=== PATIENT | male | born 1955 | race Caucasian/White ===

== ENCOUNTER 2021-06-25 09:47 | Emergency (ER) | payer BC, MEDICARE ==
[2021-06-25] MEDS ORDERED: Ketorolac 60 MG/2 ML SDV IM ONE (10:55)
[2021-06-25] MEDS ORDERED: Acetaminophen 500 MG Tab PO ONE (10:55)
--- NOTE | 2021-06-25 12:29 | EDM.PDOC ---
ED HPI GENERAL MEDICAL PROBLEM - General Chief Complaint: General Stated Complaint: SOB BROKEN RIBS Time Seen by Provider: 06/25/21 10:06 Source of Information: Reports: Patient History Limitations: Reports: No Limitations - History of Present Illness INITIAL COMMENTS - FREE TEXT/NARRATIVE: HISTORY AND PHYSICAL: History of present illness: Patient is a 65-year-old male who presents emergency room today with concern of left-sided rib injury that occurred 3 days ago. Patient states 3 days ago he was on a stepstool and states that he was 1 or 2 rungs up in the garden. Patient states that the stepstool was not properly positioned and fell out from underneath him and states that he fell off to his left side and hit his left side ribs on a large rock that was in the garden. Patient states that he did not hit his head or lose consciousness. Patient states that since then, he has had worsening left-sided rib pain and states that he is having difficulties laying down. Patient states his pain is much improved if he stands but states whenever he goes to sit or lay down, he is had an increase in pain. Patient denies any other associated symptoms. Patient denies fever, chills, chest pain, shortness of breath, or cough. Denies headache, neck stiff ness, change in vision, syncope, or near syncope. Denies nausea, vomiting, abdominal pain, diarrhea, constipation, or dysuria. Has not noted any blood in urine or stool. Patient has been eating and drinking appropriately. Review of systems: As per history of present illness and below otherwise all systems reviewed and negative. Past medical history: As per history of present illness and as reviewed below otherwise noncontributory. Surgical history: As per history of present illness and as reviewed below otherwise noncontributory. Social history: See social history for further information Family history: As per history of present illness and as reviewed below otherwise noncontributory. Physical exam: General: Patient is alert, oriented, and in no acute distress. Patient sitting comfortably on exam table. Vitals stable and reviewed by me. HEENT: Atraumatic, normocephalic, pupils equal and reactive bilaterally, negative for conjunctival pallor or scleral icterus, mucous membranes moist, TMs normal bilaterally, throat clear, neck supple, nontender, trachea midline. No drooling or trismus noted. No meningeal signs. No hot potato voice noted. Lungs: Pain to palpation of the posterior left-sided ribs #8 through 10 without crepitus. Otherwise, clear to auscultation, breath sounds equal bilaterally, c hest nontender. Heart: S1S2, regular rate and rhythm without overt murmur Abdomen: Soft, nondistended, nontender. Negative for masses or hepatosplenomegaly. Negative for costovertebral tenderness. Pelvis: Stable nontender. Genitourinary: Deferred. Rectal: Deferred. Skin: Intact, warm, dry. No lesions or rashes noted. Extremities: Atraumatic, negative for cords or calf pain. Neurovascular unremarkable. Neuro: Awake, alert, oriented. Cranial nerves II through XII unremarkable. Cerebellum unremarkable. Motor and sensory unremarkable throughout. Exam nonfocal. Notes: Signs and symptoms that were prompt return to the ED thoroughly discussed with patient. Discussed importance for follow-up with a primary care provider. Voices understanding and is agreeable to plan of care. Denies any further q uestions or concerns at this time. Diagnostics: Chest CT w/o cont Therapeutics: Toradol, Tylenol, Incentive spirometry Prescription: Tramadol Impression: Rib injury Plan: 1. Use the incentive spirometer 3 times a day for the next 5 days as discussed. Take medication as prescribed. Caution when taking tramadol as this does cause drowsiness and sedation. Do not take this medication operate any heavy equipment or machinery. Caution when taking this medication outside of the home. 2. You can alternate ibuprofen and Tylenol as directed for pain and discomfort. 3. Follow-up with a primary care provider as discussed. Return to the emergency room as needed and as discussed. Definitive disposition and diagnosis as appropriate pending reevaluation and review of above. Left Back Pain Score (Numeric/FACES): 4 - Related Data Allergies Allergy/AdvReac Type Severity Reaction Status Date / Time No Known Allergies Allergy Verified 06/25/21 10:22 Home Meds: Home Meds traMADol [Ultram] 50 mg PO Q6H PRN #15 tab 06/25/21 [Rx] Past Medical History - Past Health History Medical/Surgical History: Denies Medical/Surgical History Cardiovascular History: Reports: Hypertension Social & Family History - Tobacco Use Tobacco Use Status *Q: Never Tobacco User - Recreational Drug Use Recreational Drug Use: No ED ROS GENERAL - Review of Systems Review Of Systems: Comprehensive ROS is negative, except as noted in HPI. ED EXAM, GENERAL - Physical Exam Exam: See Below (see dictation) Course - Vital Signs Last Recorded V/S: Last Vital Signs Temp 98.2 F 06/25/21 14:30 Pulse 88 06/25/21 14:30 Resp 18 06/25/21 14:30 BP 148/72 H 06/25/21 14:30 Pulse Ox 98 06/25/21 14:30 - Orders/Labs/Meds Orders: Active Orders 24 hr Category Date Time Status DME for Discharge [COMM] Stat Oth 06/25/21 14:12 Ordered Meds: Medications Discontinued Medications Generic Name Dose Route Start Last Admin Trade Name Freq PRN Reason Stop Dose Admin Acetaminophen 1,000 mg 06/25/21 10:55 06/25/21 11:16 Acetaminophen 500 Mg Tab PO 06/25/21 10:56 1,000 mg ONETIME ONE Administration Ketorolac Tromethamine 60 mg 06/25/21 10:55 06/25/21 11:17 Ketorolac 60 Mg/2 Ml Sdv IM 06/25/21 10:56 60 mg ONETIME ONE Administration Departure - Departure Time of Disposition: 14:12 Disposition: Home, Self-Care 01 Clinical Impression: Rib injury - Discharge Information Prescriptions: traMADol [Ultram] 50 mg PO Q6H PRN #15 tab PRN Reason: Pain (Severe 7-10) Instructions: Blunt Chest Trauma Referrals: Venancio Ivy MD [Primary Care Provider] - Forms: ED Department Discharge Additional Instructions: The following information is given to patients seen in the emergency department who are being discharged to home. This information is to outline your options for follow-up care. We provide all patients seen in our emergency department with a follow-up referral. The need for follow-up, as well as the timing and circumstances, are variable depending upon the specifics of your emergency department visit. If you don't have a primary care physician on staff, we will provide you with a referral. We always advise you to contact your personal physician following an emergency department visit to inform them of the circumstance of the visit and for follow-up with them and/or the need for any referrals to a consulting specialist. The emergency department will also refer you to a specialist when appropriate. This referral assures that you have the opportunity for follow-up care with a specialist. All of these measure are taken in an effort to provide you with optimal care, which includes your follow-up. Under all circumstances we always encourage you to contact your private physician who remains a resource for coordinating your care. When calling for follow-up care, please make the office aware that this follow-up is from your recent emergency room visit. If for any reason you are refused follow-up, please contact the [facility] Emergency Department at and asked to speak to the emergency department charge nurse. [facility] [address] [place] [id number] [id number] 1. Use the incentive spirometer 3 times a day for the next 5 days as discussed. Take medication as prescribed. Caution when taking tramadol as this does cause drowsiness and sedation. Do not take this medication operate any heavy equipment or machinery. Caution when taking this medication outside of the home. 2. You can alternate ibuprofen and Tylenol as directed for pain and discomfort. 3. Follow-up with a primary care provider as discussed. Return to the emergency room as needed and as discussed. Sepsis Event Note (ED) - Evaluation Sepsis Screening Result: No Definite Risk - Focused Exam Vital Signs: Vital Signs Temp Pulse Resp BP Pulse Ox 06/25/21 14:30 98.2 F 88 18 148/72 H 98 06/25/21 13:02 98.2 F 84 18 123/83 97 06/25/21 12:20 98.2 F 78 18 116/73 98 06/25/21 11:30 98.1 F 78 18 131/73 97 06/25/21 10:22 97.2 F 94 18 148/102 H 94 L - My Orders Last 24 Hours: My Active Orders 06/25/21 14:12 DME for Discharge [COMM] Stat - Assessment/Plan Last 24 Hours: My Active Orders 06/25/21 14:12 DME for Discharge [COMM] Stat
--- NOTE | 2021-06-25 13:33 | CT ---
INDICATION: Trauma, fall with chest wall pain. TECHNIQUE: CT chest without contrast. COMPARISON: None FINDINGS: Lungs and pleura: No suspicious nodules or infiltrates. No pleural effusions, pleural thickening, or pneumothorax. Heart and vasculature: Heart size is normal. Thoracic aorta and pulmonary artery are normal in caliber. Lymph nodes/mediastinum: No mediastinal, hilar, or axillary adenopathy. Chest wall: No masses. Upper abdomen: There are 2 small low-attenuation lesions in the liver which are believed to represent cysts. There is also a right renal cyst. No other acute or significant finding. Bones: No sign of acute fracture dislocation. 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 IMPRESSION: No sign of acute injury or significant disease in the chest. Specifically no sign of left rib fracture. Please note that all CT scans at this facility use dose modulation, iterative reconstruction, and/or weight-based dosing when appropriate to reduce radiation dose to as low as reasonably achievable. Dictated by Yrn Cisneros MD @ 06/25/2021 1:31:22 PM (Electronically Signed)
== END 2021-06-25 14:36 | disposition home or self-care (01) ==
LOC: MW.ED 09:47
DX: S29.9XXA Unspecified injury of thorax, initial encounter (principal); I10 Essential (primary) hypertension; W18.09XA Striking against other object with subsequent fall, initial encounter
CPT/HCPCS: 71250; 96372; 99283; A9270; J1885